=== PATIENT | female | born 1950 | race African-American/Black ===

== ENCOUNTER 2016-11-30 23:19 | Emergency (ER) | payer MEDICARE, MEDICAID ==
[~2016-11-30] VITALS: Ht 160 cm; Wt 69.0 kg
[2016-12-01 00:10] VITALS: BP 161/76
== END 2016-12-01 01:59 | disposition home or self-care (01) ==
LOC: ER 23:20
DX: R21 Rash and other nonspecific skin eruption (principal); M19.90 Unspecified osteoarthritis, unspecified site; I10 Essential (primary) hypertension; M10.9 Gout, unspecified; Z90.10 Acquired absence of unspecified breast and nipple
CPT/HCPCS: 99283

== ENCOUNTER 2018-03-30 12:07 | Emergency (ER) | payer MEDICARE, MEDICAID ==
[~2018-03-30] VITALS: Ht 157.5 cm; Wt 74.0 kg
[2018-03-30] MEDS ORDERED: TRAM50TA PO (12:23)
[2018-03-30] MEDS ORDERED: HYDROCODONE/ACETAMINOPHEN 5/325MG TABLET PO ONE (15:15)
[2018-03-30 15:19] VITALS: BP 173/91
== END 2018-03-30 16:13 | disposition home or self-care (01) ==
LOC: ER 12:28
DX: M25.512 Pain in left shoulder (principal); I10 Essential (primary) hypertension
CPT/HCPCS: 99283